=== PATIENT | male | born 1950 | race Caucasian/White ===

== ENCOUNTER → 2017-02-11 | Outpatient (CLI) | payer MEDICARE, OTHER ==
[~2017-02-11] VITALS: Ht 172.7 cm; Wt 74.6 kg
[~2017-02-11] MED LIST: ASPIRIN E.C. 8181 MG PO; CRANBERRY 100 M1 SGL PO; LIPITOR20 MG PO; MACROBID 1100 MG/CAP; MULTIPLE VITAMI1 CAP PO; NEXIUM 40MG40 MG PO; ZYRTEC 10MG10 MG PO
[2017-02-11 09:19] VITALS: BP 137/78; PULSE 55
[2017-02-11 10:35] VITALS: BP 146/87; PULSE 54
== END ==
LOC: COL.RAD 08:55
DX: R19.09 Other intra-abdominal and pelvic swelling, mass and lump (principal)

== ENCOUNTER 2018-05-10 11:51 | Day surgery (SDC) | payer MEDICARE, OTHER ==
[~2018-05-10] VITALS: Ht 172.7 cm; Wt 81.9 kg
[2018-05-10 13:01] VITALS: BP 155/85; PULSE 52; TEMP 98.1
[2018-05-10] MEDS ORDERED: KLONOPIN 0.5MG0.5 MG PO (13:18)
[2018-05-10] MEDS ORDERED: NEURONTIN400 MG/CAP PO (13:19)
[2018-05-10] MEDS ORDERED: PRILOSEC 20MG20 MG PO (13:20)
[2018-05-10] MEDS ORDERED: COLACE 100100 MG/CAP PO (13:20)
[2018-05-10] MEDS ORDERED: FLONASE NASAL S16 GM NS (13:22)
[2018-05-10] MEDS ORDERED: LEADER CLE17 GM/Dose PO (13:23)
[2018-05-10] MEDS ORDERED: MOBIC15 MG PO (13:24)
[2018-05-10 14:55] VITALS: BP 146/75; PULSE 64; TEMP 97.5
--- NOTE | 2018-05-10 14:55 | NUR ---
PATIENT TRANSFERED FROM OR VIA CART TO BAY 6. POST OP VITAL SIGNS STARTED. ALERT AND ORIENTED X 3. AT BEDSIDE. CALL LIGHT WITHIN REACH. WILL CONTINUE TO MONITOR.
[2018-05-10 15:10] VITALS: BP 145/81; PULSE 57
--- NOTE | 2018-05-10 15:10 | NUR ---
PATIENT CONTINUES TO BE STABLE. EATING VANILLA PUDDING AND DRINKING ORANGE JUICE. CALL LIGHT WITHIN REACH AND REMAINS AT BEDSIDE.
[2018-05-10 15:25] VITALS: BP 151/66; PULSE 48
[2018-05-10 15:40] VITALS: BP 152/68; PULSE 47; TEMP 97.3
--- NOTE | 2018-05-10 15:53 | NUR ---
O2 DC'D AT THIS TIME. LEG BAG ATTACHED WITH EDUCATION, PATIENT AND SPOUSE VERBALIZE UNDERSTANDING. TOLERATED FOOD AND DRINK WITH NO ISSUES. CALL LIGHT IUN REACH.
--- NOTE | 2018-05-10 15:55 | NUR ---
URINE OUTPUT 150CC.
[2018-05-10 16:26] VITALS: BP 140/85; PULSE 61; TEMP 96.8
--- NOTE | 2018-05-10 16:30 | NUR ---
PATIENT DISCHARGED TO HOME. DISCHARGE INSTRUCTIONS GIVEN TO PATIENT AND SPOUSE, VERBALIZED UNDERSTANDING. AMBULATED TO PERSONAL CAR.
== END 2018-05-10 16:33 | disposition home or self-care (01) ==
LOC: SDCO 11:51
DX: N32.0 Bladder-neck obstruction (principal); N31.2 Flaccid neuropathic bladder, not elsewhere classified; N30.20 Other chronic cystitis without hematuria; Z79.899 Other long term (current) drug therapy; Z79.82 Long term (current) use of aspirin; K21.9 Gastro-esophageal reflux disease without esophagitis; Z90.79 Acquired absence of other genital organ(s); Z85.828 Personal history of other malignant neoplasm of skin; Z98.52 Vasectomy status; H35.30 Unspecified macular degeneration; E78.5 Hyperlipidemia, unspecified; Z80.9 Family history of malignant neoplasm, unspecified; N39.0 Urinary tract infection, site not specified; J30.9 Allergic rhinitis, unspecified; L57.0 Actinic keratosis
CPT/HCPCS: A4215; C1769; J0690; J1100; J2405; J2704; J3010; J3301

== ENCOUNTER → 2018-12-20 | Outpatient (CLI) | payer OTHER ==
[~2018-12-20] MED LIST changes: +COLACE 100100 MG/CAP PO; +FLONASE NASAL S16 GM NS; +KLONOPIN 0.5MG0.5 MG PO; +LEADER CLE17 GM/Dose PO; +MOBIC15 MG PO; +NEURONTIN400 MG/CAP PO; +PRILOSEC 20MG20 MG PO
== END ==
LOC: COL.RAD 13:38
DX: M19.032 Primary osteoarthritis, left wrist (principal)

== ENCOUNTER 2019-02-19 06:49 | Emergency (ER) | payer MEDICARE, OTHER ==
[~2019-02-19] VITALS: Ht 172.7 cm; Wt 83.2 kg
[2019-02-19 06:55] VITALS: TEMP 97.5
[2019-02-19 07:25] LABS: BASO % 0.7 % (0.0-2.0); EOS # 0.1 (0.0-0.7); EOS % 1.4 % (0-4.0); GRAN # 2.9 (1.4-6.5); GRAN % 51.3 % (42.2-75.2); HEMOGLOBIN 12.2 g/dl (13.5-18.0); LYMPH # 1.5 (1.2-3.4); LYMPH % 26.4 % (20.0-51.0); MEAN CELL VOLUME 91 fl (80.0-100.0); MEAN CORPUSCULAR HEMOGLOBIN 30 pg (27.0-31.0); MEAN CORPUSCULAR HGB CONC 33 g/dl (33.0-37.0); MEAN PLATELET VOLUME 9.2 fl (7.4-10.4); MONO # 1.1 (0.1-0.6); PLATELET COUNT 313 K/mm3 (130-400); RED BLOOD COUNT 4.05 M/mm3 (4.20-5.60); REDCELL DISTRIBUTION WIDTH-CV 12.8 % (11.5-14.5)
[2019-02-19 07:26] LABS: ALBUMIN 3.7 gm/dL (3.5-5.0); BILIRUBIN,TOTAL 0.5 mg/dL (0.0-1.0); CALCIUM 9.2 mg/dL (8.4-10.2); CREATININE, serum 1.16 (0.66-1.25); TOTAL PROTEIN 7.2 gm/dL (6.4-8.2)
[2019-02-19 12:16] VITALS: BP 122/60; PULSE 82
== END 2019-02-19 12:16 | disposition home or self-care (01) ==
LOC: COL.ER 06:49
PROVIDERS: Emergency Medicine
DX: R19.7 Diarrhea, unspecified (principal); D64.9 Anemia, unspecified; E78.5 Hyperlipidemia, unspecified; Z79.51 Long term (current) use of inhaled steroids
CPT/HCPCS: J7030

== ENCOUNTER 2019-02-24 05:50 | Emergency (ER) | payer MEDICARE, OTHER ==
[~2019-02-24] VITALS: Ht 172.7 cm; Wt 79.1 kg
[2019-02-24 05:59] VITALS: TEMP 98.4
[2019-02-24 06:54] LABS: HEMOGLOBIN 11.8 g/dl (13.5-18.0); MEAN CELL VOLUME 90 fl (80.0-100.0); MEAN CORPUSCULAR HEMOGLOBIN 30 pg (27.0-31.0); MEAN CORPUSCULAR HGB CONC 34 g/dl (33.0-37.0); MEAN PLATELET VOLUME 8.9 fl (7.4-10.4); PLATELET COUNT 383 K/mm3 (130-400); RED BLOOD COUNT 3.93 M/mm3 (4.20-5.60); REDCELL DISTRIBUTION WIDTH-CV 12.7 % (11.5-14.5)
[2019-02-24 06:58] LABS: HEMATOCRIT 35.2 % (42.0-52.0)
[2019-02-24 07:09] LABS: ALBUMIN 3.4 gm/dL (3.5-5.0); BILIRUBIN,TOTAL 0.4 mg/dL (0.0-1.0); CALCIUM 9.3 mg/dL (8.4-10.2); CREATININE, serum 1.26 (0.66-1.25); POTASSIUM 3.8 mmol/L (3.4-5.0); TOTAL PROTEIN 6.8 gm/dL (6.4-8.2)
[2019-02-24 07:22] LABS: C-REACTIVE PROTEIN 21.2 mg/dL (0.0-0.9)
[2019-02-24] MEDS ORDERED: CIPRO 500MG TA500 MG PO (08:07)
[2019-02-24] MEDS ORDERED: FLAGYL500 MG PO (08:07)
[2019-02-24 08:09] LABS: BAND 42 % (0-10); EOSINOPHIL 2 % (0-4); LYMPHOCYTE 18 % (20.0-51.0); METAMYELOCYTE 1 % (0-0); NEUTROPHILS 28 % (42.0-75.2)
[2019-02-24 08:10] LABS: PLATELET ESTIMATE NORMAL (NORMAL)
[2019-02-24 09:52] VITALS: BP 134/65; PULSE 73
[2019-02-24] MEDS ORDERED: LYRICA 100MG C100 M1 PO (11:00)
[2019-02-24] MEDS ORDERED: ASPIRIN 81M81 MG/TA2 PO (11:01)
[2019-02-24] MEDS ORDERED: LODINE400 MG PO (11:01)
== END 2019-02-24 10:45 | disposition home or self-care (01) ==
LOC: COL.ER 05:50
PROVIDERS: Emergency Medicine
DX: K52.9 Noninfective gastroenteritis and colitis, unspecified (principal); E78.5 Hyperlipidemia, unspecified; Z79.51 Long term (current) use of inhaled steroids
CPT/HCPCS: J1200; J7030; Q9967

== ENCOUNTER 2019-04-13 06:35 | Day surgery (SDC) | payer OTHER ==
[~2019-04-13] VITALS: Ht 172.7 cm; Wt 85.9 kg
[~2019-04-13 06:35] MED LIST changes: +CIPRO 500MG TA500 MG PO; -CRANBERRY 100 M1 SGL PO; +CRANBERRY250 MG PO; +FLAGYL500 MG PO; +LIPITOR 40MG TA40 MG PO; -LIPITOR20 MG PO; +LODINE400 MG PO; +LYRICA 100MG C100 M1 PO; -MULTIPLE VITAMI1 CAP PO; +MULTIPLE VITAMI1 TA5 PO
[2019-04-13] MEDS ORDERED: LYRICA 25MG CAP25 MG PO (07:07)
[2019-04-13] MEDS ORDERED: PENTASA250 MG PO (07:08)
[2019-04-13] MEDS ORDERED: TYLENOL 500MG500 MG PO (07:13)
[2019-04-13] MEDS ORDERED: EMLA CREAM TOP (07:14)
[2019-04-13] MEDS ORDERED: PROBIOTIC GOLD1 EACH PO (07:16)
[2019-04-13] MEDS ORDERED: BOOST HIGH PRO240 ML PO (07:17)
[2019-04-13 07:30] VITALS: BP 143/88; PULSE 61; TEMP 97.8
[2019-04-13 08:20] VITALS: BP 132/66; PULSE 58; TEMP 98.4
--- NOTE | 2019-04-13 08:20 | NUR ---
Pt to GI bay 5 via cart from ENDO. Pt drowsy, but awake. Pt denies pain or nausea. Pt ambulates to recliner with stand by assistace. Warm blanket provided. Will continue to monitor. Call light within reach.
[2019-04-13 08:35] VITALS: BP 110/67; PULSE 59
--- NOTE | 2019-04-13 08:35 | NUR ---
Pt continues to rest. Tolerating food and fluids without difficulties. Call light within reach.
[2019-04-13 08:50] VITALS: BP 125/68; PULSE 55
--- NOTE | 2019-04-13 08:50 | NUR ---
Discharge instructions reviewed. Pt voices understanding. IV site discontinued with all parts intact. Pt up to dress. Call light within reach.
--- NOTE | 2019-04-13 09:07 | NUR ---
Pt escorted to private car via wheel chair. Pt accompanied home by his .
== END 2019-04-13 09:07 | disposition home or self-care (01) ==
LOC: SDCO 06:35
DX: K92.1 Melena (principal); R93.3 Abnormal findings on diagnostic imaging of other parts of digestive tract; Z91.041 Radiographic dye allergy status; Z88.8 Allergy status to other drugs, medicaments and biological substances; Z88.3 Allergy status to other anti-infective agents; D64.9 Anemia, unspecified; E78.00 Pure hypercholesterolemia, unspecified
CPT/HCPCS: J2250; J3010; J7030

== ENCOUNTER 2022-06-07 10:17 | Day surgery (SDC) | payer OTHER ==
[~2022-06-07] VITALS: Ht 172.7 cm; Wt 86.6 kg
[~2022-06-07 10:17] MED LIST changes: +BOOST HIGH PRO240 ML PO; +EMLA CREAM TOP; +LYRICA 25MG CAP25 MG PO; +PENTASA250 MG PO; +PROBIOTIC GOLD1 EACH PO; +TYLENOL 500MG500 MG PO
[2022-06-07] MEDS ORDERED: PROTONIX 40MG T40 MG PO (11:02)
[2022-06-07] MEDS ORDERED: LYRICA 100MG C100 M1 PO (11:03)
[2022-06-07] MEDS ORDERED: CELEBREX 1100 MG/CAP PO (11:03)
[2022-06-07] MEDS ORDERED: TYLENOL 500MG500 MG PO (11:03)
[2022-06-07] MEDS ORDERED: COLACE 100100 MG/CAP PO (11:04)
[2022-06-07] MEDS ORDERED: LIPITOR 40MG TA40 MG PO (11:05)
[2022-06-07] MEDS ORDERED: PROBIOTIC GOLD1 EACH PO (11:05)
[2022-06-07] MEDS ORDERED: ZYRTEC 10MG10 MG PO (11:06)
[2022-06-07] MEDS ORDERED: FLONASEALLERGY NS (11:06)
[2022-06-07] MEDS ORDERED: MIRALAX PA17 GM/Dose PO (11:07)
[2022-06-07] MEDS ORDERED: CEPHALEXIN500 M1 PO (11:08)
[2022-06-07] MEDS ORDERED: CRANBERRY250 MG PO (11:09)
[2022-06-07] MEDS ORDERED: MULTI VITAMINS1 TAB PO (11:09)
[2022-06-07] MEDS ORDERED: [UNRECOGNIZED DRUG - OTHER] PO (11:09)
[2022-06-07] MEDS ORDERED: D3 PO (11:10)
[2022-06-07 11:11] VITALS: BP 142/72; PULSE 55; TEMP 97.1
[2022-06-07] MEDS ORDERED: NORCO 325 MG-51 TAB PO (13:52)
[2022-06-07 14:40] VITALS: BP 129/80; PULSE 66; TEMP 97.5
--- NOTE | 2022-06-07 14:40 | NUR ---
1440 PATIENT RETURNS TO ROOM 8 VIA CART. PATIENT IS ALERT AND ORIENTED. RESPIRATIONS EVEN AND UNLABORED. VITAL SIGNS OBTAINED. PATIENT IS IN ROOM. PATIENT HAS 3 LAP SITES TO ABDOMEN ALL COVERED WITH A BANDAIDS. 3 SITES ARE CDI. PATIENT REQUESTED A SPRITE AND APPLE SAUCE. NO DIFFICULTIES SWALLOWING. 1500 THIS NURSE DISCONTINUED IV FROM RIGHT HAND WITH NO DIFFICULTIES. 1505 DISCHARGE INSTRUCTIONS PROVIDED TO PATIENT AND PATIENT . BOTH VERBALIZED UNDERSTANDING. 1520 PATIENT DISCHARGES FROM UNIT VIA WHEELCHAIR IN STABLE CONDITION. PATIENT IS DRIVING PATIENT HOME.
[2022-06-07 14:55] VITALS: BP 122/52; PULSE 66
[2022-06-07 15:10] VITALS: BP 134/76; PULSE 69
== END 2022-06-07 15:20 | disposition home or self-care (01) ==
LOC: SDCO 10:17
DX: K40.90 Unilateral inguinal hernia, without obstruction or gangrene, not specified as recurrent (principal); G47.33 Obstructive sleep apnea (adult) (pediatric); K21.9 Gastro-esophageal reflux disease without esophagitis; Z99.81 Dependence on supplemental oxygen; Z86.16 Personal history of COVID-19
CPT/HCPCS: C1781; J0690; J1100; J1170; J2405; J2704; J3010; J7120